=== PATIENT | male | born 1970 | race Caucasian/White ===

== ENCOUNTER 2021-10-09 12:58 | Emergency (ER) | payer OTHER ==
[2021-10-09 13:33] VITALS: BP 148/91; PULSE 76; RESP 18; TEMP 98.1
--- NOTE | 2021-10-09 13:45 | ED ---
General Adult HPI - General Chief complaint: Fall Stated complaint: L elbow dislocation Time Seen by Provider: 10/09/21 13:35 Source: patient, RN notes reviewed, old records reviewed Mode of arrival: ambulatory Limitations: no limitations - History of Present Illness Initial comments: 51-year-old male presenting for evaluation of left wrist and left elbow pain. Patient was on drywall stilts yesterday, tripped and fell landing predominantly on his left upper extremity. He's had continued pain since that time. There was minor head injury without loss consciousness. No other complaints. - Related Data Previous Rx's Medication Instructions Recorded HYDROcodone/APAP 5-325MG [[place] 1 tab PO Q6HR PRN #12 tab 10/09/21 5-325] Ibuprofen [Motrin] 600 mg PO Q8HR PRN #24 tab 10/09/21 Allergies Allergy/AdvReac Type Severity Reaction Status Date / Time No Known Allergies Allergy Verified 10/09/21 13:33 Review of Systems ROS Statement: Those systems with pertinent positive or pertinent negative responses have been documented in the HPI. ROS Other: All systems not noted in ROS Statement are negative. Past Medical History Past Medical History: No Reported History Past Surgical History: Hernia Repair Past Psychological History: No Psychological Hx Reported Smoking Status: Current every day smoker Past Alcohol Use History: Occasional General Exam Limitations: no limitations General appearance: alert, in no apparent distress Head exam: Present: atraumatic, normocephalic Eye exam: Present: normal appearance, PERRL ENT exam: Present: normal exam Neck exam: Present: normal inspection. Absent: tenderness, meningismus Respiratory exam: Present: normal lung sounds bilaterally. Absent: respiratory distress, wheezes Cardiovascular Exam: Present: regular rate, normal rhythm GI/Abdominal exam: Present: soft. Absent: distended, tenderness Extremities exam: Present: tenderness, joint swelling. Absent: full ROM (Decreased range of motion, swelling of the left elbow, distal pulses are intact, normal cap refill, there is also tenderness over the wrist without gross deformity.) Neurological exam: Present: alert, oriented X3, CN II-XII intact, normal gait. Absent: motor sensory deficit Psychiatric exam: Present: normal affect, normal mood Skin exam: Present: warm, dry, intact. Absent: cyanosis, diaphoretic Course Vital Signs 10/09/21 13:29 Temperature 98.1 F Pulse Rate 76 Respiratory 18 Rate Blood Pressure 148/91 O2 Sat by Pulse 98 Oximetry Procedures - Orthopedic Splinting/Casting Injury #1 Side: left Upper Extremity Injury Location: long arm Upper Extremity Immobilizer: posterior splint Medical Decision Making - Medical Decision Making 31-year-old male with fall which occurred yesterday. There was minor head trauma, head CT is obtained which is negative for intracranial hemorrhage or mass effect. I did provide x-ray of the left elbow and left wrist. There is a minimally displaced radial head fracture. Patient is placed in a splint, given a sling, given orthopedic follow-up. Disposition Clinical Impression: Radial head fracture, closed Disposition: HOME SELF-CARE Condition: Good Instructions (If sedation given, give patient instructions): Elbow Fracture (ED) Prescriptions: Ibuprofen [Motrin] 600 mg PO Q8HR PRN #24 tab PRN Reason: Pain HYDROcodone/APAP 5-325MG [[place] 5-325] 1 tab PO Q6HR PRN #12 tab PRN Reason: Pain Is patient prescribed a controlled substance at d/c from ED?: No Referrals: None,Stated [Primary Care Provider] - 1-2 days Nelson Machado DO [Doctor of Osteopathic Medicine] - 1-2 days Time of Disposition: 14:51
--- NOTE | 2021-10-09 14:31 | XR ---
Left wrist and left elbow HISTORY: Trauma and pain 4 views of the left wrist, 4 views the left elbow, no comparisons Bone mineralization, joint spaces and alignment are maintained in the left wrist. There is a proximal radial fracture at the radial neck. Sclerosis is present, there is no displacemen t. There is a joint effusion present. IMPRESSION: Left radial neck fracture. No evident fracture or dislocation of the left wrist
--- NOTE | 2021-10-09 14:43 | CT ---
EXAMINATION TYPE: CT brain cspine wo con DATE OF EXAM: 10/09/2021 COMPARISON: None available HISTORY: Fall. CT DLP: 1414.5 mGycm Automated exposure control for dose reduction was used. TECHNIQUE: CT scan of the head and cervical spine are performed without contrast. FINDINGS: There is no acute intracranial hemorrhage, mass effect, or midline shift identified. The ventricles and sulci are within normal limits in size. The globes are intact and the visualized sin uses are clear. Opacified right inferior mastoid air cells. Cervical spine is visualized in its entirety from C1 through upper thoracic levels and demonstrates s atisfactory alignment without evidence of acute fracture or dislocation. Prevertebral soft tissue ap pears within normal limits. The C1-C2 articulation is unremarkable. Degenerative changes at C5-6 and C6-7 levels. Multilevel neural foraminal stenosis and spinal canal s tenosis is noted. Enlarged nasopharyngeal and palatine tonsils, please correlate clinically. Scattere d bilateral subcentimeter cervical lymph nodes, nonspecific. IMPRESSION: 1. There is no acute fracture or dislocation evident in the cervical spine. 2. No acute intracranial hemorrhage, mass effect, or midline shift is seen. 3. Incidental findings as described above.
[2021-10-09] MEDS ORDERED: KETOROLAC 15 MG/ML 1 ML VIAL IM STA (14:59)
== END 2021-10-09 15:08 | disposition home or self-care (01) ==
LOC: EC 12:58
DX: S52.121A Displaced fracture of head of right radius, initial encounter for closed fracture (principal); F17.200 Nicotine dependence, unspecified, uncomplicated; W01.0XXA Fall on same level from slipping, tripping and stumbling without subsequent striking against object, initial encounter
CPT/HCPCS: 29105; 99284; 96372; 73080; 73110; 72125; 70450; J1885